=== PATIENT | male | born 1985 | race Caucasian/White ===

== ENCOUNTER 2019-01-20 06:55 | Day surgery (SDC) | payer OTHER ==
[~2019-01-20] VITALS: Ht 190.5 cm; Wt 110.6 kg
[2019-01-20] VITALS (14 sets, daily range): BP systolic 121–149; BP diastolic 68–80; PULSE 62–79; RESP 16–22; Ht 190.5 cm; Wt 110.6 kg
[2019-01-20] MEDS ORDERED: NEOSTIGMINE 10 MG INJ ONE (07:00)
[2019-01-20] MEDS ORDERED: CLINDAMYCIN 900 MG/50 ML D5W IVPB IVPB ONE (07:00)
--- NOTE | 2019-01-20 07:45 | HPN ---
Date/Time of Note Date/Time of Note DATE: 01/20/19 TIME: 07:45 Interval H&P Admission Note Pt. seen H&P reviewed: No system changes TRACI RAMÍREZ MD Jan 20, 2019 07:45
[2019-01-20] MEDS ORDERED: ROPIVACAINE 0.5 % 30 ML VIAL ONE ×2 (09:18→09:29)
[2019-01-20] MEDS ORDERED: BACITRACIN/POLYMYXIN 28.35 GM OINT TOP ONE (09:18)
[2019-01-20] MEDS ORDERED: CEFAZOLIN 1 GM INJ ONE (09:28)
[2019-01-20] MEDS ORDERED: ROCURONIUM 50 MG INJ ONE (09:28)
[2019-01-20] MEDS ORDERED: GLYCOPYRROLATE 0.4 MG INJ ONE (09:28)
[2019-01-20] MEDS ORDERED: PROPOFOL 20 ML ONE (09:28)
[2019-01-20] MEDS ORDERED: DEXAMETHASONE 4 MG/ML 5 ML INJ ONE (09:29)
[2019-01-20] MEDS ORDERED: ONDANSETRON 4 MG INJ ONE (09:29)
[2019-01-20] MEDS ORDERED: MIDAZOLAM 1 MG/ML 2 ML INJ ONE (09:29)
[2019-01-20] MEDS ORDERED: FENTAnyl 50 MCG/ML VIAL ONE (09:29)
--- NOTE | 2019-01-20 09:31 | PREAC ---
Date/Time of Note Date/Time of Note DATE: 01/20/19 TIME: 09:30 Anesthesia Eval and Record Evaluation Time Pre-Procedure Interview DATE: 01/20/19 TIME: 09:30 Age 33 Sex male NPO: 8 hrs Preoperative diagnosis RIGHT KNEE ACL TEAR Planned procedure RIGHT KNEE ACL RECONSTRUCTION, ACL REPAIR Past Medical History Past Medical History: None Surgery & Anesthesia Issues No known issue Meds Anticoagulation: No Beta Kiran within 24 hr: No Reason Beta Kiran not given: Pt. not on B-Kiran No Active Prescriptions or Reported Meds Meds reviewed: Yes Allergies Coded Allergies: Penicillins (Verified Allergy, Severe, RASH, 01/20/19) Allergies Reviewed: Yes Labs/Studies Labs Reviewed: Reviewed by anesthesiologist test: N/A Pre-procedure Exam Last vitals Vital Signs Date Temp Pulse Resp B/P (MAP) Pulse Ox O2 O2 Flow FiO2 Time Delivery Rate 01/20/19 97.5 79 18 121/76 99 Room Air 08:02 (91) Airway: Adequate mouth opening, Adequate thyromental dist Mallampati: Mallampati II Teeth: Normal Lung: Normal Heart: Normal ASA Physical Status ASA physical status: 1 Emergency: None Planned Anesthetic General/MAC: ETT Nerve block: Femoral (right) Planned Pain Management Single shot nerve block, Parenteral pain med Pre-operative Attestations Prior to commencing anesthesia and surgery, the patient was re-evaluated, there was verification of: *The patient's identity *The results of appropriate recent lab work and preoperative vital signs *The above evaluation not changing prior to induction *Anesthetic plan, risk benefits, alternative and complications discussed with patient/family; questions answered; patient/family understands, accepts and wishes to proceed. Godwni Carlos M.D. Jan 20, 2019 09:31
[2019-01-20] MEDS ORDERED: MEPERIDINE 25 MG INJ IV PRN (10:00)
[2019-01-20] MEDS ORDERED: HYDROmorphONE 1 MG/5 ML IV SYRINGE IV PRN ×3 (10:00)
[2019-01-20] MEDS ORDERED: ONDANSETRON 4 MG INJ IV PRN (10:00)
[2019-01-20] MEDS ORDERED: TRIMETHOBENZAMIDE 100 MG/ML VIAL IM PRN (10:00)
[2019-01-20] MEDS ORDERED: hydrALAzine 20 MG INJ IV PRN (10:00)
[2019-01-20] MEDS ORDERED: FENTAnyl 50 MCG/ML VIAL IV PRN ×3 (10:00)
[2019-01-20] MEDS ORDERED: OXYCODONE/ACETAMINOPHEN (5/325) TAB PO PRN ×2 (10:00)
[2019-01-20] MEDS ORDERED: morphine 2 MG INJ IV PRN (10:00)
[2019-01-20] MEDS ORDERED: MIDAZOLAM 1 MG/ML 2 ML INJ IV PRN (10:00)
[2019-01-20] MEDS ORDERED: IPRATROPIUM (NEB) 0.5 MG/2.5 ML AMP HHN PRN (10:00)
[2019-01-20] MEDS ORDERED: DIPHENHYDRAMINE 50 MG INJ IV PRN (10:00)
[2019-01-20] MEDS ORDERED: ALBUTEROL 0.083% (NEB) 2.5 MG/3 ML AMP HHN PRN (10:00)
[2019-01-20] MEDS ORDERED: LABETALOL HCL 20MG INJ IV PRN (10:00)
[2019-01-20] MEDS ORDERED: EPHEDrine SULFATE 50 MG/5 ML SYG IV PRN (10:00)
[2019-01-20] MEDS ORDERED: LABETALOL HCL 20MG INJ ONE (10:12)
[2019-01-20] MEDS ORDERED: KETOROLAC 30 MG INJ IV SCH (12:00)
--- NOTE | 2019-01-20 12:17 | OPR ---
Date/Time of Note Date/Time of Note DATE: 01/20/19 TIME: 12:10 Operative Report Procedure Date: Jan 20, 2019 Preoperative Diagnosis Right knee medial meniscus tear Right knee ACL tear Postoperative Diagnosis Right knee ACL tear Right knee medial meniscus tear Operation/Procedure Performed Right knee arthroscopy with medial meniscal repair Right knee arthroscopy with ACL reconstruction with hamstring autograft Surgeon Traci Ramírez MD Public Administration Teacher DANNY [facility] Anesthesia Type: general, other (Fascia iliacus) Anesthesiologist: Godwin Carlos M.D. Tourniquet Time: 82 min at 250 mmHg Estimated Blood Loss: minimal Transfusion none Specimen None Grafts/Implants Mitek adjustable loop button Mitek tibial bio Intrafix size a 68 Complications none Pt Condition Post Procedure: stable Disposition: PACU Indications INDICATIONS: The patient is a 33-year-old male with a prolonged history of right knee giving way. He has had continued episodes of instability. The patient has restored their range of motion and is now brought to the operating room for ACL reconstruction, possible partial medial and lateral meniscectomy versus medial and lateral meniscal repair, chondroplasty and debridement. RISK NOTE: Patient was explained the risks and benefits of the surgery in the patients moapa language, including not limited to infection, bleeding, loss of limb, loss of life, need for future surgery, risk of anesthesia, risk of injury to the blood vessels and nerves, ligaments or tendons, and risk of deep vein thrombosis. Patient understood these risks and wished to proceed with the surgery. TAR DISTRIBUTOR OPERATOR SURGEON: During the operation, the services of a physician surgical services manager were medically indicated and necessary to provide exposure of the operative site for the surgical procedure and to maintain the limb in a proper position to carry out the operation safely and efficiently. Without the qualified library clerical assistant being present, it would have extended the operative procedure and made the procedure technically more difficult to perform. Procedure Description The patient was brought to the operating room and placed supine on the operating room table. General anesthesia was induced and a fascia iliacus block was placed. The right lower extremity was examined under anesthesia. Range of motion was 0 degrees of extension to 135 degrees of flexion. There was no varus or valgus or posterolateral instability. He had no instability to varus or valgus stress at 0 or 30 degrees. He had a 2+ Mary and drawer with a positive pivot shift The right lower extremity was then prepped and draped in the usual fashion. A tourniquet was placed proximally on the thigh over a bias stockinette. A standard anterolateral parapatellar stab wound was created. The knee joint was entered with a blunt-tipped obturator, followed by the 30-degree video arthroscope. An anteromedial portal was established under arthroscopic control. A routine arthroscopic survey was performed. The suprapatellar pouch was unremarkable. The undersurface of the patella was well-preserved. The patella appeared to track centrally within the trochlear groove. Trochlea no chondromalacia. The medial and lateral gutters were inspected and there was no loose body seen. There was no hypertrophied plica. The popliteal hiatus was entered and was unremarkable. The lateral compartment was entered. The lateral femoral condyle exhibited no chondromalacia and the lateral tibial plateau showed no chondromalacia. There was no chondromalacia adjacent to the notch. There was no chondromalacia along the central aspect of the weight bearing lateral tibial plateau. The lateral meniscus was probed and found to be stable and firm on probing The intercondylar notch was visualized. The anterior cruciate ligament was torn from its femoral origin. There was an empty lateral wall. Posteromedially t here was no loose body seen. The posterior cruciate ligament was visualized and appeared intact. The medial compartment was entered. The articular surfaces of the medial femoral condyle and medial tibial plateau were visualized. There was minimal chondromalacia noted on the medial femoral condyle, and chondromalacia noted on the medial tibial plateau. The medial meniscus was torn at the posterior horn at a red-red zone in a longitudinal fashion. It was then rasped and then repaired with a Mitek Meniscal Repair device in a vertical and horizontal mattress fashion. Attention was turned to reconstruction of the anterior cruciate ligament. Following exsanguination with an Esmarch bandage the tourniquet was inflated to 250 mm of mercury. Using a motorized shaver a limited notchplasty was performed, exposing the lateral wall and roof of the notch, identifying the [id number] position. The stump of the anterior cruciate ligament was debrided. A Vector guide was placed intra-articularly between the tibial spines in line with the anterior horn of the lateral meniscus. A Leyla wire was then inserted into the knee through a 2 cm incision made over the proximal medial tibia for the hamstring harvest. The incision was deepened through the subcutaneous tissue with subperiosteal dissection achieved. Bleeding points were coagulated with the Bovie electrocautery. The Semitendinosus and gracilis were harvested and taken to the back table, accommodating a 8.5 mm graft on the femoral side and 8.5 mm graft on the tibial side. Tibial drilling was then carried out first with a 6 mm followed by a 8.5 mm cylindrical reamer with the guide set at 55 degrees. Via an accessory medial portal, the Beath pin was drilled out the femoral cortex and skin with the knee in hyperflexion. The femoral tunnel was then created, with a spade tip guidewire, Depth-gauging confirmed a tunnel length of 35 mm. Then reaming proceeded with an single fluted 8.5 mm drill to a depth of 28mm. A adjustable rigid loop Mitek button was selected. The graft was inserted intra-articularly and the Mitek button was deployed. The graft was cycled for 20 cycles with 25 pounds of force to pre-load the graft. Tibial fixation was carried out using a 6-8 BioIntra-Fix in 10 degrees of flexion with a posterior drawer. At the completion of surgery the patient had a firm stable Mary. There was a negative pivot shift. The patient had a 0 firm Mary and a negative pivot shift. There was no evidence for any roof or lateral wall impingement. The tourniquet was deflated at 82 minutes. The knee was irrigated with two liters of lactated Ringer's solution. Excess fluid was drained. The tibial wounds were then copiously irrigated with bacitracin solution and closed in layers with #0, #2-0 and #3-0 Vicryl. The skin was reapproximated with #4-0 Monocryl. The knee was injected with 20 cc of 0.5% plain ropivacaine. A dry sterile dressing was applied, followed by a bulky bandage and EDITH Wrap placed over the bulky bandage, insuring no contact with the skin. A postoperative TROM brace was applied locked in full extension. The patient was awakened in the Operating Room and transported to the Recovery Room in satisfactory condition. The patient appeared to tolerate the procedure well. At the completion of surgery the patient had soft compartments, palpable pulses, and brisk capillary refill. There were no complications noted. TRACI RAMÍREZ MD Jan 20, 2019 12:17
--- NOTE | 2019-01-20 12:17 | PAC ---
Date/Time of Note Date/Time of Note DATE: 01/20/19 TIME: 12:16 Post-Anesthesia Notes Post-Anesthesia Note Last documented vital signs Vital Signs Date Temp Pulse Resp B/P (MAP) Pulse Ox O2 O2 Flow FiO2 Time Delivery Rate 01/20/19 97.5 79 18 121/76 99 Room Air 12:16 (91) Activity: WNL Respiratory function: WNL Cardiovascular function: WNL Mental status: Baseline Pain reasonably controlled: Yes Hydration appropriate: Yes Nausea/Vomiting absent: Yes Godwin Carlos M.D. Jan 20, 2019 12:17
== END 2019-01-20 14:50 | disposition home or self-care (01) ==
LOC: SDS 06:55
PROVIDERS: ATTEND Orthopaedic Surgery
DX: S83.511D Sprain of anterior cruciate ligament of right knee, subsequent encounter (principal); X58.XXXD Exposure to other specified factors, subsequent encounter; M23.221 Derangement of posterior horn of medial meniscus due to old tear or injury, right knee
CPT/HCPCS: 29881; 29888; 82306; J0690; J1100; J1170; J1200; J1885; J2175; J2250; J2405; J2795; J3010; J2710